=== PATIENT | male | born 1985 | race Caucasian/White ===

== ENCOUNTER 2016-09-19 17:54 | Emergency (ER) | payer OTHER ==
[~2016-09-19] VITALS: Ht 170.2 cm; Wt 90.9 kg
[~2016-09-19 17:54] MED LIST: IBUP800T28 PO; ONDA4TAB6 PO; TAMS0.4C98 PO
[2016-09-19 18:37] VITALS: BP 119/72; RESP 28; O2SAT 96
--- NOTE | 2016-09-19 19:17 | ED.REPORT ---
HPI-URI / Cough / Cold Date of Service Sep 19, 2016 ED Provider: Andrew Gamez PA-C Brian is an otherwise healthy 31-year-old male who presents with a chief complaint of throat swelling. Describes a 2 day history of sore throat, fever, tender lymph nodes, headache. Denies cough, congestion, shortness of breath, wheezing or other complaints. Nursing Notes Stated Complaint: SWOLLEN THROAT Chief Complaint: ENT & Mouth Nursing Notes Reviewed: Yes Allergies: Coded Allergies: No Known Allergies (Verified Allergy, Unknown, 09/19/16) Scheduled Penicillin V Potassium (Penicillin V Potassium) 500 Mg Tablet 500 MG PO TID Tamsulosin (Flomax) 0.4 Mg Capsule 0.8 MG PO DAILY Scheduled PRN Ibuprofen (Ibuprofen) 800 Mg Tablet 800 MG PO TID PRN PRN For Pain Ondansetron (Zofran) 4 Mg Tablet 4 MG PO Q4H PRN PRN For Nausea General Time Seen by MD: 18:49 Chief Complaint Other Throat swelling Past Medical History Past Medical History migraines Hx of kidney stones Past Surgical History I&D abscess Smoking History Current Every Day Smoker Social History Alcohol Use: "Social" Drug Use: IV drugs Other Social History: Local resident Ambulatory Status Independent Review of Systems Negative unless stated otherwise in history of present illness Physical Exam General: Well developed, well nourished, mild distress. Head: Atraumatic, normocephalic. No mastoid tenderness. Eyes: No scleral icterus or injection. No discharge. PERRL. Vision grossly intact. Ears: Pinna and tragus nontender with manipulation. External auditory canal patent, atraumatic and without discharge. Tympanic membrane donovan, shiny and translucent without fluid, bulging, retraction or perforation. Hearing grossly intact. Nose: Symmetrical, nares patent without discharge. Mouth/pharynx: White exudate over posterior pharynx tonsils and uvula. Normal dentition, mucus membranes moist. Tonsils 2+ and symmetrical, uvula midline. Voice clear. Neck: Tender 1 cm anterior lymphadenopathy. Trachea midline. Respiratory: Regular rate and rhythm. Breath sounds present, clear to auscultation and equal bilaterally. Cardiovascular: Regular rate and rhythm, without murmur, gallop or rub. Skin: Warm and dry. Many small excoriations on face. Neurological: Grossly nonfocal. Psychological: alert and oriented. Speech appropriate, linear and logical. Behavior appropriate. Initial Vital Signs Vital Signs (First) Date Time Temp Pulse Resp B/P Pulse Ox O2 Delivery O2 Flow Rate FiO2 09/19/16 18:37 39.1 101 28 119/72 96 Room Air Initial VS: Reviewed Interpretation & Diagnostics Interpretation & Diagnostics: Negative rapid strep Re-Eval/Medical Decision Med Decision/Clinical Course Med Decision/Clinical Course: In brief this is an otherwise healthy 32-year-old male chief complaint of throat swelling. Closer examination he describes a 2 day history of very sore throat, fever, tender anterior lymphadenopathy. Denies cough. States that he has difficulty swallowing. On exam he is white exudate over the posterior pharynx, tonsils and uvula, has tender 1 cm anterior lymphadenopathy and is febrile. Is given a rapid strep test in the department which was negative. However he meets all [facility] criteria, I feel is reasonable to treat empirically for strep. I prescribed 500 mg Pen-Vee K 3 times a day 10 days, advised Tylenol and/or ibuprofen for fever and pain along with Cepacol throat lozenges. Provided primary care follow-up and return precautions. Discharge & Departure Impression: Primary Impression: Streptococcal sore throat Disposition: Home Discharge Condition All VS Reviewed: Yes Condition: Stable Patient Instructions: Strep Throat (ED) Additional Instructions: Evaluation for throat swelling in the emergency department today. History and physical is highly suggestive of strep throat. I will write you a prescription for penicillin to be taken with food 3 times a day for 10 days. Be sure to take the entire course of medication even if you start feeling better. I recommend [id number] Cepacol throat lozenges for pain. You can also use 400 mg of ibuprofen (Advil, Motrin) every 6 hours, or 1000 mg of acetaminophen ( Tylenol) every 6 hours. These drugs can be taken at the same time for more severe pain. I will provide you a referral for primary care follow-up, please contact them to arrange follow-up if your symptoms are not improving in 4-5 days. Return to emergency department for any new or worsening symptoms, including difficulty breathing or sudden swelling around your lips or mouth. Referrals: [facility] Provider for APC: Teresa Smith MD, Seth PA-C Sep 19, 2016 19:17
[2016-09-19] MEDS ORDERED: PENI500T PO (19:19)
[2016-09-19 19:42] VITALS: PULSE 98; RESP 16; O2SAT 99
== END 2016-09-19 19:42 | disposition home or self-care (01) ==
LOC: SED 17:54
DX: J02.0 Streptococcal pharyngitis (principal); F17.200 Nicotine dependence, unspecified, uncomplicated

== ENCOUNTER 2016-12-03 02:32 | Emergency (ER) | payer OTHER ==
[~2016-12-03] VITALS: Ht 170.2 cm; Wt 79.5 kg
[~2016-12-03 02:32] MED LIST changes: +PENI500T PO
[2016-12-03 02:42] VITALS: BP 135/75; PULSE 101; RESP 16; O2SAT 99
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
[2016-12-03] MEDS ORDERED: Ketorolac 30 mg/mL 2 mL Inj IM ONE (03:20)
[2016-12-03] MEDS ORDERED: BUPR1FIL3 SL (04:08)
[2016-12-03 04:18] VITALS: BP 136/67; PULSE 89; RESP 18; O2SAT 98
--- NOTE | 2016-12-03 09:35 | DRSVH ---
PROCEDURE: X-RAY LEFT SHOULDER, MINIMUM TWO VIEWS ([id number]) INDICATIONS: trauma, shoulder step-off TECHNIQUE: 3 views of the shoulder were acquired. COMPARISON: None. FINDINGS: Bones: No fractures or dislocations. No suspicious bony lesions. Visualized ribs appear intact. Soft tissues: No suspicious soft tissue calcifications. IMPRESSION: No displaced fracture seen. If there is continued pain, followup exam or additional mike ging such as MRI or CT could be performed for further assessment. Dictated by: Binh Farrell [facility] Interpreted: Johanna Nichols MD on 12/03/2016 at 9:34 Transcribed by: ZEN on 12/03/2016 at 9:35 Approved by: Johanna Nichols MD, PhD on 12/03/2016 at 16:49
== END 2016-12-03 04:13 ==
LOC: SED 02:32
DX: S43.52XA Sprain of left acromioclavicular joint, initial encounter (principal); Y35.893A Legal intervention involving other specified means, suspect injured, initial encounter; Y92.830 Public park as the place of occurrence of the external cause; Y93.89 Activity, other specified; Y99.8 Other external cause status; F17.200 Nicotine dependence, unspecified, uncomplicated; F11.20 Opioid dependence, uncomplicated; Z59.0 Homelessness
CPT/HCPCS: 73030; 96372; 99284; J1885